=== PATIENT | female | born 1995 | race American Indian/Alaskan Native ===

== ENCOUNTER 2021-07-18 09:06 | Outpatient (CLI) | payer OTHER ==
--- NOTE | 2021-07-18 11:26 | Electrocardiograph Report ---
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 No previous ECG available for comparison Electronically Signed On 07-18-2021 11:25:40 EDT by Tobias Marcelino
== END 2021-07-18 09:07 | disposition home or self-care (01) ==
LOC: CARD 09:06
PROVIDERS: ATTEND Obstetrics & Gynecology
DX: O13.9 Gestational [pregnancy-induced] hypertension without significant proteinuria, unspecified trimester (principal); Z3A.00 Weeks of gestation of pregnancy not specified
CPT/HCPCS: 93005